=== PATIENT | female | born 1955 | race Caucasian/White ===

== ENCOUNTER 2022-03-07 20:16 | Inpatient (IN) | payer MEDICARE, OTHER ==
[~2022-03-07] VITALS: Ht 165.1 cm; Wt 95.7 kg
[~2022-03-07 20:16] MED LIST: FLAGYL500 MG PO; LEVAQUIN500 MG PO; LORTAB 10-3251 EACH PO; PREDNISOLONE OU; [UNRECOGNIZED DRUG - OTHER] OU
[2022-03-07 21:12] LABS: HEMOGLOBIN 13.3 gm/dl (12.3-15.3); RED BLOOD COUNT 4.44 M/UL (4.00-5.10); WHITE BLOOD COUNT 19.1 K/UL (4.5-11.0)
[2022-03-08] MEDS ORDERED: IPRAT-ALBUT 0.5-3 ML NEB (08:34)
[2022-03-08] MEDS ORDERED: SINGULAIR10 MG PO (08:35)
[2022-03-08] MEDS ORDERED: AMLODIPINE BESY10 MG PO (08:35)
[2022-03-08] MEDS ORDERED: LOW DOSE ASPIRI81 MG PO (08:36)
[2022-03-08] MEDS ORDERED: LEVOTHYROXINE50 MCG PO (08:38)
[2022-03-08] MEDS ORDERED: DESYREL 50 MG T50 MG PO (08:38)
[2022-03-08] MEDS ORDERED: ADVAIR 500-501 EACH INH (13:09)
[2022-03-08] MEDS ORDERED: DUREZOL5 ML OS (13:13)
[2022-03-08 16:16] LABS: CANDIDA ALBICANS Not Detected (Negative); HAEMOPHILUS INFLUENZAE Not Detected (Negative); KLEBSIELLA OXYTOCA Not Detected (Negative); KLEBSIELLA PNEUMONIAE Not Detected (Negative); KPC-CARBAPENEM-RESISTANCE GENE Not Detected (Negative); PROTEUS Not Detected (Negative); PSEUDOMONAS AERUGINOSA Not Detected (Negative); SERRATIA MARCESANS Not Detected (Negative); STAPHYLOCOCCUS Not Detected (Negative); STAPHYLOCOCCUS AUREUS Not Detected (Negative); STREP AGALACTIAE (GROUP B) Not Detected (Negative); STREP PYOGENES (GROUP A) Not Detected (Negative); STREPTOCOCCUS Not Detected (Negative); vanA/B (VANCOMYCIN RESIST GENE Not Detected (Negative)
[2022-03-08 16:17] LABS: CANDIDA KRUSEI Not Detected (Negative); CANDIDA TROPICALIS Not Detected (Negative)
[2022-03-08 17:29] LABS: ESCHERICHIA COLI DETECTED (Negative)
[2022-03-09 06:04] LABS: HEMOGLOBIN 11.3 gm/dl (12.3-15.3); RED BLOOD COUNT 3.77 M/UL (4.00-5.10); WHITE BLOOD COUNT 11.3 K/UL (4.5-11.0)
[2022-03-10 06:09] LABS: HEMOGLOBIN 11.1 gm/dl (12.3-15.3); RED BLOOD COUNT 3.74 M/UL (4.00-5.10); WHITE BLOOD COUNT 9.2 K/UL (4.5-11.0)
[2022-03-11 05:10] LABS: HEMOGLOBIN 11.1 gm/dl (12.3-15.3); RED BLOOD COUNT 3.79 M/UL (4.00-5.10); WHITE BLOOD COUNT 8.6 K/UL (4.5-11.0)
[2022-03-11 22:43] LABS: ADENOVIRUS F 40/41 Not Detected (Negative); ASTROVIRUS Not Detected (Negative); CAMPYLOBACTER Not Detected (Negative); CRYPTOSPORIDIUM Not Detected (Negative); E.COLI 0157 Not Detected (Negative); ENTAMOEBA HISTOLYTICA Not Detected (Negative); ENTEROTOXIGENIC E.COLI (ETEC) Not Detected (Negative); GIARDIA LAMBLIA Not Detected (Negative); NOROVIRUS GI/GII Not Detected (Negative); PLESIOMONAS SHIGELLOIDES Not Detected (Negative); ROTOVIRUS A Not Detected (Negative); SALMONELLA Not Detected (Negative); SAPOVIRUS Not Detected (Negative); SHIG/ENTEROINVAS.ECOLI (EIEC) Not Detected (Negative); SHIGA-LIK TOX.PRO.E.COLI (STEC Not Detected (Negative); VIBRIO Not Detected (Negative); VIBRIO CHOLERAE Not Detected (Negative); YERSINIA ENTEROCOLITICA Not Detected (Negative)
[2022-03-12 00:36] LABS: HEMOGLOBIN 10.6 gm/dl (12.3-15.3); RED BLOOD COUNT 3.59 M/UL (4.00-5.10)
[2022-03-12 00:52] LABS: WHITE BLOOD COUNT 11.1 K/UL (4.5-11.0)
[2022-03-12 00:57] LABS: BUN/CREATININE RATIO 9 (0-10)
[2022-03-12 09:42] LABS: ENTEROPATHOGENIC E.COLI (EPEC) Not Detected (Negative)
[2022-03-12 09:43] LABS: ENTEROAGGREGATIVE E.COLI (EAEC DETECTED (Negative)
[2022-03-13 06:21] LABS: HEMOGLOBIN 10.9 gm/dl (12.3-15.3); RED BLOOD COUNT 3.73 M/UL (4.00-5.10); WHITE BLOOD COUNT 11.5 K/UL (4.5-11.0)
[2022-03-14 03:30] LABS: HEMOGLOBIN 10.8 gm/dl (12.3-15.3); RED BLOOD COUNT 3.67 M/UL (4.00-5.10); WHITE BLOOD COUNT 12.4 K/UL (4.5-11.0)
[2022-03-14 03:51] LABS: BUN/CREATININE RATIO 8 (0-10)
[2022-03-15] MEDS ORDERED: DOCUSATE SODIU100 MG PO (18:28)
[2022-03-15] MEDS ORDERED: OMNICEF 300 MG300 MG PO (18:28)
[2022-03-15] MEDS ORDERED: POLYETHYLENE GL17 GM PO (18:28)
[2022-03-15] MEDS ORDERED: PROTONIX40 MG PO (18:33)
[2022-03-15] MEDS ORDERED: KLOR-CON 1010 MEQ PO (18:33)
--- NOTE | 2022-03-15 19:42 | NUR ---
pt discharged education complete, iv removed, v/s taken. pt is waiting on her ride home.
== END 2022-03-15 19:45 | disposition home or self-care (01) | DRG 872 ==
LOC: ER1 20:16 → CDU 03-08 03:45 → MED SURG 4 03-08 03:45
PROVIDERS: Internal Medicine; Physician Assistant; ADMIT Internal Medicine
DX: A41.51 Sepsis due to Escherichia coli [E. coli] (principal); N17.9 Acute kidney failure, unspecified; N13.6 Pyonephrosis; N30.00 Acute cystitis without hematuria; Z20.822 Contact with and (suspected) exposure to COVID-19; E03.9 Hypothyroidism, unspecified; R53.81 Other malaise; I10 Essential (primary) hypertension; R65.20 Severe sepsis without septic shock; K76.0 Fatty (change of) liver, not elsewhere classified; R19.7 Diarrhea, unspecified; M54.50 Low back pain, unspecified; E86.0 Dehydration; E87.6 Hypokalemia; R91.8 Other nonspecific abnormal finding of lung field; K44.9 Diaphragmatic hernia without obstruction or gangrene; J45.909 Unspecified asthma, uncomplicated; K59.00 Constipation, unspecified; H54.7 Unspecified visual loss; Z94.7 Corneal transplant status; Z98.890 Other specified postprocedural states; Z82.49 Family history of ischemic heart disease and other diseases of the circulatory system; Z79.899 Other long term (current) drug therapy; Z90.49 Acquired absence of other specified parts of digestive tract; Z88.2 Allergy status to sulfonamides; Z88.5 Allergy status to narcotic agent; Z91.013 Allergy to seafood
CPT/HCPCS: 0240U; 36415; 71045; 74018; 80048; 80053; 81001; 82550; 82553; 83605; 83735; 83880; 84100; 84439; 84443; 84484; 85025; 85027; 86140; 87040; 87077; 87086; 87150; 87186; 87507; 93005; 94640; 94664; 94760; 96374; 96375; 96376; 97116; 97116-GP-CQ; 97162; 99285; C9113; J0696; J1335; J1644; J2270; J2405; J7030